=== PATIENT | female | born 1960 | race African-American/Black ===

== ENCOUNTER 2016-09-21 10:04 | Emergency (ER) | payer MEDICARE, BC ==
[~2016-09-21] VITALS: Ht 157.5 cm; Wt 73.0 kg
[~2016-09-21 10:04] MED LIST: ACET325T33 PO; BACL10TA PO; DIAZ-90 PO; DOCU-144 PO; ESTR1.2510 PO; FLUO20CA38 PO; HYDR-762 PO; TIZA4CAP PO; ZOLP10TA PO
[2016-09-21 10:07] VITALS: Ht 157.5 cm; Wt 73.0 kg
[2016-09-21] MEDS ORDERED: VAL2 PO (10:36)
[2016-09-21] MEDS ORDERED: TIZA4CAP PO (10:37)
[2016-09-21] MEDS ORDERED: SOD CHLORIDE 0.9% 1,000 ML IV STA (10:38)
[2016-09-21] MEDS ORDERED: HYDR-902 PO (10:38)
[2016-09-21] MEDS ORDERED: ONDANSETRON 4 MG INJ IV STA (10:38)
[2016-09-21] MEDS ORDERED: HYDROmorphONE 1 MG/ML SYG IV STA ×2 (10:38→12:13)
[2016-09-21] MEDS ORDERED: ACET325T45 PO (10:39)
[2016-09-21] MEDS ORDERED: LIDOCAINE 2% JELLY 5 ML TOP ONE (11:00)
[2016-09-21 11:10] LABS: ADD SCAN DIFF NO
[2016-09-21 11:11] LABS: BASOPHILS % 0.2 % (0.0-2.0); EOSINOPHILS % 0.4 % (0.0-7.0); HEMOGLOBIN 11.8 g/dl (12.0-16.0); LYMPHOCYTES # 1.7 10^3/ul (0.8-2.9); LYMPHOCYTES % 31.7 % (15.0-51.0); MEAN CORPUSCULAR HEMOGLOBIN 31.7 pg (29.0-33.0); MEAN CORPUSCULAR HGB CONC 32.8 g/dl (32.0-37.0); MEAN CORPUSCULAR VOLUME 96.8 fl (82.0-101.0); MEAN PLATELET VOLUME 10.8 fl (7.4-10.4); MONOCYTE # 0.4 10^3/ul (0.3-0.9); MONOCYTES % 6.9 % (0.0-11.0); NEUTROPHIL # 3.1 10^3/ul (1.6-7.5); NEUTROPHILS % 60.4 % (39.0-77.0); PLATELET COUNT 197 10^3/UL (140-415); RED BLOOD COUNT 3.72 10^6/ul (4.20-5.40); RED CELL DISTRIBUTION WIDTH 12.8 % (11.5-14.5); WHITE BLOOD COUNT 5.2 10^3/ul (4.8-10.8)
[2016-09-21 11:29] LABS: POTASSIUM 3.9 mmol/L (3.5-5.1)
[2016-09-21 11:31] LABS: BILIRUBIN,INDIRECT 0.3 mg/dl (0-1.1); BILIRUBIN,TOTAL 0.3 mg/dl (0.2-1.3)
[2016-09-21 11:32] LABS: CALCIUM 9.8 mg/dl (8.4-10.2)
[2016-09-21 12:00] VITALS: TEMP 98.5
[2016-09-21] MEDS ORDERED: DOCU-144 PO (12:40)
[2016-09-21] MEDS ORDERED: OXYC-279 PO (12:40)
[2016-09-21] MEDS ORDERED: POLY17PO6 PO (12:40)
--- NOTE | 2016-09-21 12:56 | ERD ---
ER Documentation Chief Complaint Date/Time DATE: 09/21/16 TIME: 12:54 Chief Complaint rectal pain states its her hemorrhoids HPI 55-year-old woman brought in by EMS from home for rectal pain and hemorrhoids. Patient denies blood per rectum and has a long history of hemorrhoids and recently ran out of her opioid analgesics. She denies blood per rectum, no fevers or chills, no weight loss, no chest pain or shortness of breath. Patient was transported here by EMS without further complication. ROS All systems reviewed and are negative except as per history of present illness. Medications Home Meds Active Scripts Polyethylene Glycol* (Miralax*) 17 Gm Powd.pack, 17 GM PO DAILY for CONSTIPATION , #7 Prov:LESTER RAMOS MD 09/21/16 Docusate Sodium* (Colace*) 100 Mg Capsule, 100 MG PO BID, #30 CAP Prov:LESTER RAMOS MD 09/21/16 Oxycodone HCl/Acetaminophen (Percocet 5-325 mg Tablet) 1 Each Tablet, 1 EACH PO TID for PAIN LEVEL 6-10, #15 TAB Prov:LESTER RAMOS MD 09/21/16 Reported Medications Acetaminophen* (Acetaminophen*) 325 Mg Tablet, 325 MG PO QID Y for PAIN, #30 TAB 09/21/16 Hydrocodone/Acetaminophen ([place] 10-325 Tablet) 1 Each Tablet, 1 EACH PO QID Y for PAIN, TAB 09/21/16 Tizanidine Hcl* (Zanaflex*) 4 Mg Capsule, 4 MG PO BID Y for SPASTICITY, CAP 09/21/16 Diazepam* (Valium*) 2 Mg Tab, 2 MG PO BID, TAB 09/21/16 Zolpidem Tartrate* (Ambien*) 10 Mg Tablet, 10 MG PO HS Y for INSOMNIA, TAB 05/29/14 Estrogens Conjugated* (Premarin*) 1.25 Mg Tablet, 1.25 MG PO DAILY, TAB 05/29/14 Discontinued Reported Medications Fluoxetine Hcl* (Prozac*) 20 Mg Capsule, 20 MG PO DAILY, CAP 01/18/15 Tizanidine Hcl* (Zanaflex*) 4 Mg Capsule, 4 MG PO Q6H NEEDED for SPASTICITY, CAP 01/18/15 Hydrocodone Bit-Acetaminophen* ([place]*) 10-325 Mg Tablet, 1 TAB PO Q4H Y for PAIN, TAB 05/29/14 Docusate Sodium* (Colace*) 100 Mg Capsule, 100 MG PO BID, CAP 05/29/14 Baclofen* (Baclofen*) 10 Mg Tablet, 10 MG PO TID, TAB 05/29/14 Diazepam* (Valium*) 5 Mg Tablet, 10 MG PO BID, TAB 05/29/14 Discontinued Scripts Acetaminophen* (Tylenol*) 325 Mg Tablet, 2 TAB PO Q8 Y for PAIN AND OR ELEVATED TEMP, #20 TAB Prov:PENG FLORES PA-C 07/20/15 Hydrocodone Bit-Acetaminophen* ([place]*) 10-325 Mg Tablet, 1 TAB PO Q6 Y for PAIN , #20 TAB Prov:KENNY GRACIA 01/18/15 Allergies Allergies: Coded Allergies: codeine (Verified Allergy, Mild, RASH, SEVERE N/V, 09/21/16) meperidine (Verified Allergy, Unknown, 09/21/16) morphine (Verified Allergy, Unknown, 09/21/16) PMhx/Soc Chronic pain syndrome, opioid dependence, hemorrhoids, hypertension, anxiety, history of cholecystectomy and abdominal hysterectomy History of Surgery: Yes (Laminectomy, COMPLETE HYSTERECTOMY, HEMORRHOIDECTOMY) Anesthesia Reaction: No Hx Neurological Disorder: No Hx Respiratory Disorders: No Hx Cardiac Disorders: Yes (HTN) Hx Psychiatric Problems: No Hx Miscellaneous Medical Probl: Yes (HX BACK INJURY, BACK SX L4, L5) Hx Alcohol Use: No Hx Substance Use: No Hx Tobacco Use: No Smoking Status: Current every day smoker Physical Exam Vitals Vital Signs Date Time Temp Pulse Resp B/P Pulse Ox O2 Delivery O2 Flow Rate FiO2 09/21/16 12:00 98.5 70 18 105/62 99 Room Air 09/21/16 10:08 88 22 73/61 99 Room Air 09/21/16 10:07 98.2 83 18 122/67 99 Physical Exam GENERAL: Well-developed, well-nourished, well-hydrated, moderate distress HEENT: Moist mucous membranes, pink conjunctiva, no cervical spine tenderness or step-off deformities, no goiter, no jaundice or icterus, extraocular movements intact without pain. No submandibular induration, and no pharyngeal erythema NEURO: Alert and oriented 3, cranial nerves II through XII intact bilaterally, pupils equal round reactive to light, no focal deficits or facial asymmetry, sensation intact distally Strength 5/5 in upper and lower extremities bilaterally CARDIAC: Regular rate and rhythm, no murmurs rubs or gallops LUNGS: Clear bilaterally no wheezing crackles or stridor ABDOMEN: Soft nontender, no guarding, no rigidity, no rebound, no psoas sign no obturator sign. There is a medium sized soft hemorrhoid at the anal fissure it is nonpulsatile and there is no evidence of bleeding or skin breakdown. SKIN: Warm and dry to touch, no abrasions, contusions, or hematomas, no lacerations, no ecchymosis, no target lesions, and without ulcers EXTREMITIES: No clubbing cyanosis or edema, calves are bilaterally symmetrical, no Homans sign, no popliteal cord sign. Distal pulses equal and bilateral PSYCH: Normal affect without agitation or irritability Result Diagram: 09/21/16 1059 09/21/16 1059 Results 24 hrs Laboratory Tests Test 09/21/16 10:59 White Blood Count 5.210^3/ul Red Blood Count 3.7210^6/ul Hemoglobin 11.8g/dl Hematocrit 36.0% Mean Corpuscular Volume 96.8fl Mean Corpuscular Hemoglobin 31.7pg Mean Corpuscular Hemoglobin Concent 32.8g/dl Red Cell Distribution Width 12.8% Platelet Count 32563^3/UL Mean Platelet Volume 10.8fl Neutrophils % 60.4% Lymphocytes % 31.7% Monocytes % 6.9% Eosinophils % 0.4% Basophils % 0.2% Nucleated Red Blood Cells % 0.0/100WBC Neutrophils # 3.110^3/ul Lymphocytes # 1.710^3/ul Monocytes # 0.410^3/ul Eosinophils # 0.010^3/ul Basophils # 0.010^3/ul Nucleated Red Blood Cells # 0.010^3/ul Sodium Level 143mmol/L Potassium Level 3.9mmol/L Chloride Level 106mmol/L Carbon Dioxide Level 26mmol/L Anion Gap 15 Blood Urea Nitrogen 12mg/dl Creatinine 1.00mg/dl Glucose Level 107mg/dl Calcium Level 9.8mg/dl Total Bilirubin 0.3mg/dl Direct Bilirubin 0.00mg/dl Indirect Bilirubin 0.3mg/dl Aspartate Amino Transf (AST/SGOT) 17IU/L Alanine Aminotransferase (ALT/SGPT) 18IU/L Alkaline Phosphatase 72IU/L Total Protein 8.0g/dl Albumin 4.0g/dl Globulin 4.00g/dl Albumin/Globulin Ratio 1.00 Lipase 26U/L Current Medications Medications (Trade) Dose Ordered Sig/[place] Route PRN Reason Start Time Stop Time Status Last Admin Dose Admin Sodium Chloride (NS) 1,000 ml @ 1,000 mls/hr Q1H STAT IV 09/21/16 10:38 09/21/16 11:37 DC 09/21/16 10:56 Hydromorphone HCl (Dilaudid) 1 mg ONCE STAT IV 09/21/16 10:38 09/21/16 10:40 DC 09/21/16 10:55 Ondansetron HCl (Zofran Inj) 4 mg ONCE STAT IV 09/21/16 10:38 09/21/16 10:40 DC 09/21/16 10:56 Lidocaine (Xylocaine 2% Jelly) 1 applic ONCE ONCE TOP 09/21/16 11:00 09/21/16 11:01 DC 09/21/16 10:56 Hydromorphone HCl (Dilaudid) 1 mg ONCE STAT IV 09/21/16 12:13 09/21/16 12:14 DC 09/21/16 12:19 Procedures/MDM IV line was established patient was placed on quality assurance monitor final rhythm strip revealed a sinus rhythm at about 80 bpm with upright P and T waves. Patient was afebrile. Departure Diagnosis: Primary Impression: Hemorrhoid Hemorrhoid type: second degree Qualified Code: K64.1 - Second degree hemorrhoids Additional Impression: Chronic pain syndrome Condition: Good Patient Instructions: Hemorrhoids LESTER RAMOS MD September 21, 2016 12:56
[2016-09-21 13:01] VITALS: BP 107/67; PULSE 50; RESP 16
== END 2016-09-21 13:19 | disposition home or self-care (01) ==
LOC: E/R 10:04
DX: K64.1 Second degree hemorrhoids (principal); R40.2252 Coma scale, best verbal response, oriented, at arrival to emergency department; G89.4 Chronic pain syndrome; I10 Essential (primary) hypertension; F17.210 Nicotine dependence, cigarettes, uncomplicated; R40.2142 Coma scale, eyes open, spontaneous, at arrival to emergency department; R40.2362 Coma scale, best motor response, obeys commands, at arrival to emergency department
CPT/HCPCS: 80053; 83690; 85025; J1170; J2405; J7030; 36415; 96374; 96375; 96376

== ENCOUNTER 2018-01-01 17:08 | Emergency (ER) | END 2018-01-01 19:52 | disposition home or self-care (01) ==